=== PATIENT | female | born 1970 | race Two or more races ===

== ENCOUNTER 2023-10-18 18:58 | Inpatient (IN) | payer MEDICAID ==
[~2023-10-18] VITALS: Ht 162.6 cm; Wt 92.6 kg
[2023-10-18 19:36] LABS: BASOPHILS % (AUTO) 1.2 % (0.0-2.0); HEMATOCRIT 46.7 % (36-46); HEMOGLOBIN 15.3 g/dL (12.0-16.0); LYMPHOCYTES # (AUTO) 2.7 K/uL (1.0-4.8); LYMPHOCYTES % (AUTO) 29.8 % (22.0-44.0); MEAN CORPUSCULAR HEMOGLOBIN 29.3 pg (26.0-34.0); MEAN CORPUSCULAR HGB CONC 32.8 G/dL (31.0-37.0); MEAN CORPUSCULAR VOLUME 89 fL (80-100); MONOCYTES # (AUTO) 0.6 K/uL (0.1-1.0); MONOCYTES % (AUTO) 6.7 % (2.0-9.0); NEUTROPHILS # (AUTO) 5.5 K/uL (1.8-7.7); NEUTROPHILS % (AUTO) 60.3 % (40.0-70.0); PLATELET COUNT (AUTO) 287 K/uL (150-450); RED BLOOD CELL COUNT(AUTO) 5.22 MIL/uL (4.00-5.20); RED CELL DISTRIBUTION WIDTH 15.2 % (11.5-14.5); WHITE BLOOD COUNT (AUTO) 9.2 K/uL (4.5-11.0)
[2023-10-18] MEDS ORDERED: SODIUM CHLORIDE 0.9% 100 ML ONE (19:37)
[2023-10-18] MEDS ORDERED: IOHEXOL 350 MG/ML 100 ML VIAL ONE (19:37)
[2023-10-18] MEDS ORDERED: 0.9% SODIUM CHLORIDE 10 ML SYRINGE IVP ONE (19:37)
[2023-10-18 19:45] LABS: PROTHROMBIN TIME 10.9 SEC (9.4-11.6)
[2023-10-18] MEDS: HydrALAZINE HCL 20 MG/ML VIAL IVP ONE (20:11)
[2023-10-18 20:14] LABS: CALCIUM, TOTAL 10.1 mg/dL (8.8-10.5); CREATININE 1.08 mg/dL (0.60-1.30); POTASSIUM 4.3 mmol/L (3.5-5.1)
[2023-10-18 20:23] LABS: ALBUMIN 3.8 g/dL (3.4-5.0); BILIRUBIN,TOTAL 0.3 mg/dL (0.1-1.0); TOTAL PROTEIN, SERUM 8.8 g/dL (6.4-8.2)
[2023-10-18 20:29] LABS: TROPONIN I-HIGH SENSITIVITY 138 ng/L (<51)
[2023-10-18] MEDS ORDERED: NITROGLYCERIN 50 MG/D5% WATER 250 ML IV PRN (20:45)
[2023-10-18] MEDS: MORPHINE SULFATE 2 MG/ML SYRINGE IVP ONE (21:20)
[2023-10-18] MEDS: HEPARIN SODIUM 25000 UNITS/D5W 250 ML IV PRN (21:31)
[2023-10-18 21:59] LABS: TROPONIN I-HIGH SENSITIVITY 156 ng/L (<51)
[2023-10-18] MEDS ORDERED: ZOLPIDEM TARTRATE 5 MG TABLET PO PRN (22:15)
[2023-10-18] MEDS ORDERED: HEPARIN SODIUM,PORCINE 5,000 UNITS/ML VIAL IVP ONE (22:15)
[2023-10-18] MEDS ORDERED: ALBUTEROL SULFATE 2.5 MG/0.5 ML NEB SOLUTION NEB PRN (22:15)
[2023-10-18] MEDS ORDERED: BISACODYL 10 MG RECTAL RECTAL SUPPOSITORY PR PRN (22:15)
[2023-10-18] MEDS ORDERED: IPRATROPIUM BROMIDE 0.5 MG/2.5 ML NEB SOLUTION NEB PRN (22:15)
[2023-10-18] MEDS ORDERED: HYDROCODONE/ACETAMINOPHEN 5-325 MG TABLET PO PRN (22:15)
[2023-10-18] MEDS: NITROGLYCERIN 50 MG/D5% WATER 250 ML IV PRN (23:41)
[2023-10-19] VITALS (14 sets, daily range): BP systolic 102–177; BP diastolic 70–115; PULSE 80–94; RESP 14–27; TEMP 98–99.3
[2023-10-19 00:14] LABS: COVID AG,FIA SOURCE NASAL SWAB
[2023-10-19 00:20] LABS: SARS-COV2 (COVID) ANTIGEN,FIA Negative (Negative)
[2023-10-19] MEDS: ONDANSETRON HCL 4 MG/2 ML VIAL IVP PRN (01:19)
[2023-10-19 01:34] LABS: PH,URINE DRUG SCREEN 7.5 (5.0-8.0)
[2023-10-19 01:39] LABS: ALCOHOL, URINE DRUG SCREEN NEGATIVE (NEGATIVE); AMPHET/METH SCREEN,URINE NEGATIVE (NEGATIVE); BARBITURATE SCREEN, URINE NEGATIVE (NEGATIVE); BENZODIAZEPINES SCREEN,URINE NEGATIVE (NEGATIVE); CANNABINOID SCREEN,URINE POSITIVE (NEGATIVE); COCAINE SCREEN,URINE NEGATIVE (NEGATIVE); METHADONE SCREEN, URINE NEGATIVE (NEGATIVE); OPIATE SCREEN,URINE POSITIVE (NEGATIVE); PHENCYCLIDINE SCREEN,URINE NEGATIVE (NEGATIVE)
[2023-10-19] MEDS: HEPARIN SODIUM,PORCINE 5,000 UNITS/ML VIAL IVP PRN (04:23)
[2023-10-19] MEDS: ACETAMINOPHEN 325 MG TABLET PO PRN (04:43)
[2023-10-19 06:08] LABS: EOSINOPHILS % (AUTO) 0.2 % (1.0-6.0); HEMOGLOBIN 14.8 g/dL (12.0-16.0); LYMPHOCYTES # (AUTO) 2.4 K/uL (1.0-4.8); LYMPHOCYTES % (AUTO) 23.3 % (22.0-44.0); MEAN CORPUSCULAR HEMOGLOBIN 29.2 pg (26.0-34.0); MEAN CORPUSCULAR HGB CONC 32.8 G/dL (31.0-37.0); MEAN CORPUSCULAR VOLUME 89 fL (80-100); MONOCYTES # (AUTO) 0.7 K/uL (0.1-1.0); NEUTROPHILS % (AUTO) 68.5 % (40.0-70.0); PLATELET COUNT (AUTO) 276 K/uL (150-450); RED BLOOD CELL COUNT(AUTO) 5.05 MIL/uL (4.00-5.20); RED CELL DISTRIBUTION WIDTH 15.6 % (11.5-14.5); WHITE BLOOD COUNT (AUTO) 10.2 K/uL (4.5-11.0)
[2023-10-19 06:14] LABS: ANION GAP 8 mmol/L (8-16); CALCIUM, TOTAL 9.6 mg/dL (8.8-10.5); CARBON DIOXIDE 27 mmol/L (22-29); CHLORIDE 102 mmol/L (98-107); CREATININE 0.89 mg/dL (0.60-1.30); GLOMERULAR FILTR. RATE CALC > 60 mL/min (>60); GLUCOSE,RANDOM 116 mg/dL (70-110); POTASSIUM 3.5 mmol/L (3.5-5.1); SODIUM SERUM 137 mmol/L (136-145); UREA NITROGEN, BLOOD 19 mg/dL (7-18)
[2023-10-19 06:24] LABS: TROPONIN I-HIGH SENSITIVITY 5335 ng/L (<51)
[2023-10-19] MEDS ORDERED: HydrALAZINE HCL 20 MG/ML VIAL IVP PRN (06:30)
[2023-10-19] MEDS: CARVEDILOL 6.25 MG TABLET PO ONE (06:59)
[2023-10-19] MEDS: AmLODIPine BESYLATE 10 MG TABLET PO ONE (06:59)
[2023-10-19] MEDS ORDERED: SODIUM BICARBONATE 50 MEQ/50 ML VIAL ONE (08:20)
[2023-10-19] MEDS ORDERED: LIDOCAINE/PF 1% 30 ML VIAL ONE (08:20)
[2023-10-19] MEDS ORDERED: NITROGLYCERIN 50 MG/D5% WATER 250 ML ONE (08:20)
[2023-10-19] MEDS ORDERED: VERAPAMIL HCL 2.5 MG/ML 2 ML VIAL ONE (08:21)
[2023-10-19] MEDS ORDERED: IOHEXOL 300 MG/ML 100 ML VIAL ONE (08:21)
[2023-10-19] MEDS ORDERED: HEPARIN SODIUM 1000 UNITS/NS 1,000 ML ONE (08:21)
[2023-10-19] MEDS: PANTOPRAZOLE SODIUM 40 MG DR TABLET PO SCH (08:49)
[2023-10-19] MEDS: ETHYL ALCOHOL 62% ANTISEPTIC NASAL SANITIZER 0.6 ML AMPUL NASAL SCH (08:49)
[2023-10-19] MEDS ORDERED: FentaNYL CITRATE PF 100 MCG/2 ML VIAL ONE (09:37)
[2023-10-19] MEDS ORDERED: MIDAZOLAM HCL 2 MG/2 ML VIAL ONE (09:38)
[2023-10-19] MEDS ORDERED: IOHEXOL 300 MG/ML 50 ML VIAL ONE (09:53)
[2023-10-19] MEDS: HEPARIN SODIUM,PORCINE 1,000 UNITS/ML 10 ML VIAL IARTER ONE (09:59)
[2023-10-19] MEDS: HEPARIN SODIUM 2,000 UNITS in HEPARIN SODIUM 1000 UNITS/NS 1,000 ML IARTER ONE (10:00)
[2023-10-19] MEDS: VERAPAMIL HCL 2.5 MG/ML 2 ML VIAL IARTER ONE (10:00)
[2023-10-19] MEDS: IOHEXOL 300 MG/ML 100 ML VIAL IARTER ONE (10:01)
[2023-10-19] MEDS: NITROGLYCERIN/D5W 50 MG/250 ML IV BOTTLE IARTER ONE (10:11)
[2023-10-19] MEDS: MIDAZOLAM HCL 2 MG/2 ML VIAL IVP ONE (10:12)
[2023-10-19] MEDS: FentaNYL CITRATE PF 100 MCG/2 ML VIAL IVP ONE (10:12)
[2023-10-19] MEDS: LIDOCAINE 1% 30 ML/SOD BICARB 8.4% 4 ML SQ ONE (10:12)
[2023-10-19] MEDS: SODIUM CHLORIDE 0.9% 500 ML IV ONE ×2 (10:14→11:04)
[2023-10-19] MEDS ORDERED: CLOPIDOGREL BISULFATE 300 MG TABLET ONE (10:32)
[2023-10-19] MEDS: CLOPIDOGREL BISULFATE 300 MG TABLET PO ONE (11:03)
[2023-10-19] MEDS: IOHEXOL 300 MG/ML 50 ML VIAL ICOR ONE (11:05)
[2023-10-19] MEDS: ATORVASTATIN CALCIUM 40 MG TABLET PO SCH (20:26)
[2023-10-19] MEDS: CARVEDILOL 6.25 MG TABLET PO SCH (20:26)
[2023-10-19] MEDS: HEPARIN SODIUM 25000 UNITS/D5W 250 ML IV PRN (20:33)
[2023-10-19] MEDS: NITROGLYCERIN 0.4 MG SUBLINGUAL TABLET #25 SL PRN (20:38)
[2023-10-20] VITALS (9 sets, daily range): BP systolic 96–153; BP diastolic 58–84; PULSE 87–99; RESP 18–19; TEMP 97.7–98.5
[2023-10-20 07:27] LABS: BASOPHILS % (AUTO) 0.4 % (0.0-2.0); EOSINOPHILS % (AUTO) 0.7 % (1.0-6.0); HEMATOCRIT 40.9 % (36-46); HEMOGLOBIN 13.5 g/dL (12.0-16.0); LYMPHOCYTES # (AUTO) 2.9 K/uL (1.0-4.8); LYMPHOCYTES % (AUTO) 30.6 % (22.0-44.0); MEAN CORPUSCULAR HEMOGLOBIN 29.7 pg (26.0-34.0); MEAN CORPUSCULAR VOLUME 90 fL (80-100); MONOCYTES # (AUTO) 0.6 K/uL (0.1-1.0); MONOCYTES % (AUTO) 6.9 % (2.0-9.0); NEUTROPHILS # (AUTO) 5.7 K/uL (1.8-7.7); NEUTROPHILS % (AUTO) 61.4 % (40.0-70.0); RED BLOOD CELL COUNT(AUTO) 4.55 MIL/uL (4.00-5.20); RED CELL DISTRIBUTION WIDTH 15.3 % (11.5-14.5); WHITE BLOOD COUNT (AUTO) 9.3 K/uL (4.5-11.0)
[2023-10-20 07:32] LABS: PLATELET COUNT (AUTO) 249 K/uL (150-450)
[2023-10-20 07:37] LABS: ANION GAP 10 mmol/L (8-16); CALCIUM, TOTAL 8.9 mg/dL (8.8-10.5); CARBON DIOXIDE 24 mmol/L (22-29); CHLORIDE 100 mmol/L (98-107); GLOMERULAR FILTR. RATE CALC > 60 mL/min (>60); GLUCOSE,RANDOM 99 mg/dL (70-110); SODIUM SERUM 134 mmol/L (136-145); UREA NITROGEN, BLOOD 19 mg/dL (7-18)
[2023-10-20 08:15] LABS: TROPONIN I-HIGH SENSITIVITY > 25000 ng/L (<51)
[2023-10-20] MEDS: AmLODIPine BESYLATE 10 MG TABLET PO SCH (08:27)
[2023-10-20] MEDS: CLOPIDOGREL BISULFATE 75 MG TABLET PO SCH (08:27)
[2023-10-20] MEDS: MAGNESIUM HYDROXIDE SUSPENSION 30 ML UDCUP PO PRN (08:34)
[2023-10-20] MEDS: LISINOPRIL 20 MG TABLET PO SCH (12:19)
[2023-10-20] MEDS: MORPHINE SULFATE 2 MG/ML SYRINGE IVP PRN (15:41)
[2023-10-21] VITALS (8 sets, daily range): BP systolic 105–135; BP diastolic 50–88; PULSE 83–101; RESP 18–19; TEMP 98.2–98.7
[2023-10-21 06:01] LABS: BASOPHILS % (AUTO) 0.5 % (0.0-2.0); EOSINOPHILS % (AUTO) 0.3 % (1.0-6.0); HEMATOCRIT 39.1 % (36-46); HEMOGLOBIN 12.9 g/dL (12.0-16.0); LYMPHOCYTES % (AUTO) 20.8 % (22.0-44.0); MEAN CORPUSCULAR HEMOGLOBIN 29.6 pg (26.0-34.0); MEAN CORPUSCULAR VOLUME 90 fL (80-100); MONOCYTES # (AUTO) 0.8 K/uL (0.1-1.0); MONOCYTES % (AUTO) 8.3 % (2.0-9.0); NEUTROPHILS # (AUTO) 6.7 K/uL (1.8-7.7); NEUTROPHILS % (AUTO) 70.1 % (40.0-70.0); PLATELET COUNT (AUTO) 215 K/uL (150-450); RED BLOOD CELL COUNT(AUTO) 4.36 MIL/uL (4.00-5.20); RED CELL DISTRIBUTION WIDTH 15.4 % (11.5-14.5); WHITE BLOOD COUNT (AUTO) 9.6 K/uL (4.5-11.0)
[2023-10-21 06:16] LABS: CALCIUM, TOTAL 8.9 mg/dL (8.8-10.5); CREATININE 0.97 mg/dL (0.60-1.30); POTASSIUM 4.2 mmol/L (3.5-5.1)
[2023-10-21 06:34] LABS: TROPONIN I-HIGH SENSITIVITY 15289 ng/L (<51)
[2023-10-21] MEDS: HEPARIN SODIUM,PORCINE 5,000 UNITS/ML VIAL IVP PRN (06:51)
[2023-10-21] MEDS: NICOTINE 21 MG/24 HOUR PATCH TD SCH (19:43)
[2023-10-22 00:04] VITALS: BP 123/66; PULSE 91; RESP 18; TEMP 98.7
[2023-10-22 03:29] VITALS: BP 128/75; PULSE 92; RESP 18; TEMP 98.5
[2023-10-22 06:19] LABS: ANION GAP 6 mmol/L (8-16); CALCIUM, TOTAL 9.1 mg/dL (8.8-10.5); CARBON DIOXIDE 30 mmol/L (22-29); CHLORIDE 101 mmol/L (98-107); CREATININE 0.93 mg/dL (0.60-1.30); GLOMERULAR FILTR. RATE CALC > 60 mL/min (>60); GLUCOSE,RANDOM 112 mg/dL (70-110); POTASSIUM 4.3 mmol/L (3.5-5.1); SODIUM SERUM 137 mmol/L (136-145); UREA NITROGEN, BLOOD 13 mg/dL (7-18)
[2023-10-22 06:20] LABS: BASOPHILS % (AUTO) 0.5 % (0.0-2.0); HEMOGLOBIN 12.7 g/dL (12.0-16.0); LYMPHOCYTES # (AUTO) 2.3 K/uL (1.0-4.8); LYMPHOCYTES % (AUTO) 27.5 % (22.0-44.0); MEAN CORPUSCULAR HEMOGLOBIN 29.8 pg (26.0-34.0); MEAN CORPUSCULAR HGB CONC 33.5 G/dL (31.0-37.0); MEAN CORPUSCULAR VOLUME 89 fL (80-100); MONOCYTES # (AUTO) 0.7 K/uL (0.1-1.0); MONOCYTES % (AUTO) 8.2 % (2.0-9.0); NEUTROPHILS # (AUTO) 5.3 K/uL (1.8-7.7); NEUTROPHILS % (AUTO) 62.8 % (40.0-70.0); PLATELET COUNT (AUTO) 210 K/uL (150-450); RED BLOOD CELL COUNT(AUTO) 4.26 MIL/uL (4.00-5.20); RED CELL DISTRIBUTION WIDTH 15.6 % (11.5-14.5); WHITE BLOOD COUNT (AUTO) 8.5 K/uL (4.5-11.0)
[2023-10-22 07:34] VITALS: BP 117/90; PULSE 97; RESP 18; TEMP 98.6
[2023-10-22 11:04] VITALS: BP 108/72; PULSE 94; RESP 18; TEMP 98.3
[2023-10-22 15:32] VITALS: BP 102/72; PULSE 96; RESP 18; TEMP 98.2
[2023-10-22 18:59] LABS: TROPONIN I-HIGH SENSITIVITY 13740 ng/L (<51)
[2023-10-22 19:49] VITALS: BP 119/75; PULSE 107; RESP 19; TEMP 98.9
[2023-10-23 00:04] VITALS: BP 114/63; PULSE 101; RESP 18; TEMP 98.6
[2023-10-23 04:33] VITALS: BP 112/71; PULSE 91; RESP 18; TEMP 98.3
[2023-10-23 07:51] LABS: BASOPHILS % (AUTO) 1.2 % (0.0-2.0); EOSINOPHILS % (AUTO) 0.6 % (1.0-6.0); HEMATOCRIT 39.8 % (36-46); HEMOGLOBIN 13.1 g/dL (12.0-16.0); LYMPHOCYTES # (AUTO) 2.3 K/uL (1.0-4.8); LYMPHOCYTES % (AUTO) 30.2 % (22.0-44.0); MEAN CORPUSCULAR HEMOGLOBIN 29.6 pg (26.0-34.0); MEAN CORPUSCULAR VOLUME 90 fL (80-100); MONOCYTES # (AUTO) 0.8 K/uL (0.1-1.0); NEUTROPHILS # (AUTO) 4.4 K/uL (1.8-7.7); PLATELET COUNT (AUTO) 229 K/uL (150-450); RED BLOOD CELL COUNT(AUTO) 4.44 MIL/uL (4.00-5.20); RED CELL DISTRIBUTION WIDTH 15.3 % (11.5-14.5); WHITE BLOOD COUNT (AUTO) 7.7 K/uL (4.5-11.0)
[2023-10-23 08:15] VITALS: BP 106/73; PULSE 92; RESP 18; TEMP 97.6
[2023-10-23] MEDS ORDERED: LIDOCAINE/PF 1% 30 ML VIAL ONE (08:22)
[2023-10-23] MEDS ORDERED: HEPARIN SODIUM 1000 UNITS/NS 0 ML ONE (08:22)
[2023-10-23] MEDS ORDERED: IOHEXOL 300 MG/ML 100 ML VIAL ONE (08:22)
[2023-10-23] MEDS ORDERED: SODIUM BICARBONATE 50 MEQ/50 ML VIAL ONE (08:22)
[2023-10-23 11:25] VITALS: BP 130/79; PULSE 97; RESP 18; TEMP 98.5
[2023-10-23 16:01] VITALS: BP 128/95; PULSE 101; RESP 18; TEMP 98.5
== END 2023-10-23 19:30 | disposition short-term general hospital (02) | DRG 190 ==
LOC: EMS 19:02 → EDH 22:13 → ICU 10-19 00:10 → 5S 10-19 22:45
PROVIDERS: ADMIT Hospitalist; ATTEND Hospitalist
PROC: 4A023N7 Measurement of Cardiac Sampling and Pressure, Left Heart, Percutaneous Approach (ICD-10-PCS; principal; 2023-10-19)
PROC: B2111ZZ Fluoroscopy of Multiple Coronary Arteries using Low Osmolar Contrast (ICD-10-PCS; 2023-10-19)
PROC: B3101ZZ Fluoroscopy of Thoracic Aorta using Low Osmolar Contrast (ICD-10-PCS; 2023-10-19)
DX: I24.9 Acute ischemic heart disease, unspecified (principal); I21.4 Non-ST elevation (NSTEMI) myocardial infarction; I50.9 Heart failure, unspecified; I11.0 Hypertensive heart disease with heart failure; E11.9 Type 2 diabetes mellitus without complications; Z95.1 Presence of aortocoronary bypass graft; E66.9 Obesity, unspecified; I16.1 Hypertensive emergency; Z20.822 Contact with and (suspected) exposure to COVID-19; E78.5 Hyperlipidemia, unspecified; M79.602 Pain in left arm; F17.200 Nicotine dependence, unspecified, uncomplicated; Z88.0 Allergy status to penicillin; Z88.6 Allergy status to analgesic agent; Z68.35 Body mass index [BMI] 35.0-35.9, adult
CPT/HCPCS: 71045; 74174; 74175; 80048; 80053; 80307; 82550; 83880; 84484; 85025; 85610; 85730; 87081; 87481; 93005; 93306; 99285; J0360; J1644; J2250; J2270; J2405; J3010; J3490; J7050; Q9967; 36415-L1; 36415-TC; Z7610

== ENCOUNTER 2024-11-02 21:02 | Emergency (ER) | payer MEDICAID ==
[~2024-11-02] VITALS: Ht 162.6 cm; Wt 84.5 kg
[2024-11-02 22:42] LABS: PLATELET COUNT (AUTO) 247 K/uL (150-450); RED BLOOD CELL COUNT(AUTO) 4.54 MIL/uL (4.00-5.20); RED CELL DISTRIBUTION WIDTH 14.3 % (11.5-14.5); WHITE BLOOD COUNT (AUTO) 10.9 K/uL (4.5-11.0)
[2024-11-02 22:43] LABS: CALCIUM, TOTAL 8.9 mg/dL (8.8-10.5); CREATININE 0.89 mg/dL (0.60-1.30); GLOMERULAR FILTR. RATE CALC > 60 mL/min (>60); GLUCOSE,RANDOM 110 mg/dL (70-110); SODIUM SERUM 140 mmol/L (136-145); UREA NITROGEN, BLOOD 10 mg/dL (7-18)
[2024-11-02 22:49] LABS: ASPARTATE AMINOTRANSFERASE 22.0 U/L (15-37); TOTAL PROTEIN, SERUM 8.1 g/dL (6.4-8.2)
[2024-11-02 22:55] LABS: TROPONIN I-HIGH SENSITIVITY 26 ng/L (<51)
[2024-11-02] MEDS: LABETALOL HCL 5 MG/ML 20 ML VIAL IVP ONE (23:32)
[2024-11-03] MEDS ORDERED: KETOROLAC TROMETHAMINE 30 MG/ML VIAL IVP ONE (00:30)
[2024-11-03] MEDS: ACETAMINOPHEN 1000 MG/ISO-OSM 100 ML IV ONE (00:36)
[2024-11-03] MEDS ORDERED: AMLO-257 PO (01:08)
[2024-11-03 02:08] VITALS: BP 156/69; PULSE 76; RESP 18; TEMP 97.3; O2SAT 100
== END 2024-11-03 02:49 | disposition home or self-care (01) ==
LOC: EMS 21:02
DX: I16.0 Hypertensive urgency (principal); F17.210 Nicotine dependence, cigarettes, uncomplicated; F12.90 Cannabis use, unspecified, uncomplicated; I25.10 Atherosclerotic heart disease of native coronary artery without angina pectoris; Z88.6 Allergy status to analgesic agent; I10 Essential (primary) hypertension; Z95.1 Presence of aortocoronary bypass graft; Z88.0 Allergy status to penicillin; Z79.899 Other long term (current) drug therapy
CPT/HCPCS: 99285; 96374; 71045; 80048; 80076; 83880; 84484; 85025; 36415; 93005; 96375; J3490; J0131